=== PATIENT | male | born 1985 | race Caucasian/White ===

== ENCOUNTER → 2016-08-25 | Outpatient (REF) | payer MEDICAID, SELFPAY | LOC: M LAB REF 10:05 → EEVIPCON 10:05 | PROVIDERS: ATTEND Physician Assistant | DX: L03.031 Cellulitis of right toe (principal) ==

== ENCOUNTER 2017-12-29 13:23 | Emergency (ER) | payer OTHER, SELFPAY ==
[2017-12-29] MEDS: NS 1,000 ML IV (15:15)
[2017-12-29 15:47] LABS: BASO % 0.4 % (0.0-1.0); EOS # 0.1 10^3/uL (0.0-0.50); EOS % 1.1 % (0.0-3.0); HEMATOCRIT 45.8 % (42.0-52.0); HEMOGLOBIN 15.8 g/dl (13.5-17.5); IMMATURE GRANULOCYTE % 0.3 % (0-3.0); LYMPH # 1.7 10^3/uL (1.5-4.5); MEAN CORPUSCULAR HEMOGLOBIN 30.1 pg (27.0-33.0); MEAN CORPUSCULAR HGB CONC 34.5 g/dl (32.0-36.5); MEAN CORPUSCULAR VOLUME 87.2 fl (80.0-96.0); MONO # 0.6 10^3/uL (0.0-0.8); MONO % 8.3 % (0.0-5.0); NEUTROPHILS # 4.9 10^3/uL (1.8-7.7); NEUTROPHILS % 66.9 % (36.0-66.0); PLATELET COUNT, AUTOMATED 228 10^3/uL (150-450); RED BLOOD COUNT 5.25 10^6/uL (4.30-6.10); RED CELL DISTRIBUTION WIDTH 11.2 % (11.5-14.5); WHITE BLOOD COUNT 7.4 10^3/uL (4.0-10.0)
[2017-12-29 16:11] LABS: ALBUMIN 4.1 GM/DL (3.2-5.2); ALKALINE PHOSPHATASE 124 U/L (45-117); ALT/SGPT 66 U/L (12-78); AMYLASE 37 U/L (25-115); ANION GAP 7 MEQ/L (8-16); AST/SGOT 30 U/L (7-37); BILIRUBIN,DIRECT 0.2 MG/DL (0.0-0.2); BILIRUBIN,TOTAL 0.7 MG/DL (0.2-1.0); BLOOD UREA NITROGEN 16 MG/DL (7-18); CALCIUM LEVEL 9.2 MG/DL (8.5-10.1); CARBON DIOXIDE LEVEL 30 MEQ/L (21-32); CHLORIDE LEVEL 104 MEQ/L (98-107); CREATININE FOR GFR 1.07 MG/DL (0.70-1.30); GLOMERULAR FILTRATION RATE > 60.0 (>60); GLUCOSE, FASTING 88 MG/DL (70-100); LIPASE 151 U/L (73-393); POTASSIUM SERUM 4.3 MEQ/L (3.5-5.1); SODIUM LEVEL 141 MEQ/L (136-145); TOTAL PROTEIN 8.2 GM/DL (6.4-8.2)
[2017-12-29] MEDS ORDERED: ISOVUE-370 76% 100ML VIAL (Q9967) As Ordered (16:13)
== END 2017-12-29 17:26 | disposition home or self-care (01) ==
LOC: M ED 13:23
DX: K57.92 Diverticulitis of intestine, part unspecified, without perforation or abscess without bleeding (principal)
CPT/HCPCS: Q9967

== ENCOUNTER → 2018-03-10 | Outpatient (CLI) | payer OTHER ==
[2018-03-10 13:56] LABS: INR 1.03; PROTHROMBIN TIME 13.6 SECONDS (12.1-14.4)
[2018-03-10 14:11] LABS: COLLAGEN EPINEPHRINE 245 SECONDS (74-162)
[2018-03-10 14:46] LABS: COLLAGEN ADP 124 SECONDS (56-103)
== END ==
LOC: M LAB 13:12
DX: R91.1 Solitary pulmonary nodule (principal)

== ENCOUNTER → 2018-03-26 | Outpatient (CLI) | payer OTHER ==
[~2018-03-26] MED LIST: LIDOCAINE 1% MDV 20ML VIAL As Ordered
[2018-03-26 08:36] LABS: PLATELET COUNT, AUTOMATED 235 10^3/uL (150-450)
== END ==
LOC: M RADPRO 08:08
DX: J84.10 Pulmonary fibrosis, unspecified (principal); J85.0 Gangrene and necrosis of lung; J98.4 Other disorders of lung; Z87.891 Personal history of nicotine dependence
CPT/HCPCS: 32405

== ENCOUNTER → 2018-05-15 | Outpatient (CLI) | payer BC ==
[~2018-05-15] MED LIST changes: +CIPR-249 PO; +FLAG500T PO; -LIDOCAINE 1% MDV 20ML VIAL As Ordered; +ZOFR4TAB14 PO
--- NOTE | 2018-05-20 15:55 | SLEEPCENT ---
DATE OF PROCEDURE: 05/15/2018 ORDERED BY: Dr. Quiroz Nocturnal polysomnography was performed for the titration of pressure therapy in this patient with obstructive sleep apnea syndrome. Apnea-hypopnea index 17.7. For testing the patient was fit with a [employer] ComfortGel nasal mask of petite size; 4 cm of water pressure were applied to the circuit and the lights were extinguished. 7 hours and 54 minutes of data were reviewed. There were 411 minutes of sleep identified. Sleep latency was short at 1.5-minutes. Rapid eye movement (REM) latency was normal at 65 minutes. Sleep architecture improved with optimal pressure therapy. There were 4 REM cycles noted. Overall sleep efficiency 87.9%. The patient's electrocardiogram showed a sinus rhythm with an average heart rate of 72 beats per minute. EEG showed normal waveforms for awake and sleep. Respiratory events were fully palliated with CPAP at a pressure of +8. There was little activity in the limb leads. Snoring seen early in the study resolved with pressure therapy as well. IMPRESSION: Obstructive sleep apnea syndrome (G47.33). RECOMMENDATIONS: Nightly use of pressure therapy 8 cm of water.
== END ==
LOC: M SLEEP 19:34
PROVIDERS: ATTEND Physician Assistant
DX: G47.33 Obstructive sleep apnea (adult) (pediatric) (principal)